=== PATIENT | male | born 1940 | race Caucasian/White ===

== ENCOUNTER 2019-12-29 16:01 | Inpatient (IN) ==
[2019-12-29] MEDS ORDERED: Ipratropium/Albuterol Neb 3 ML IH ONE (16:26)
[2019-12-29 16:45] LABS: Basophils % 0.5 %; Eosinophils # 0.1 K/mcL (0.0-0.6); Eosinophils % 2.2 %; Hematocrit 26.3 % (37.5-50.1); Hemoglobin 6.8 g/dL (12.9-16.9); Immature Granulocytes % 1.1 % (0-4); Lymphocytes # 0.8 K/mcL (0.6-4.6); Lymphocytes % 14.7 %; Mean Corpuscular HGB Conc 25.9 g/dL (31.6-35.5); Mean Corpuscular Hemoglobin 20.6 pg (28.0-33.3); Mean Corpuscular Volume 79.7 fL (83.0-100.0); Mean Platelet Volume 9.7 fL (9.4-12.4); Monocytes # 0.4 K/mcL (0.0-1.3); Monocytes % 7.6 %; Neutrophils # 4.1 K/mcL (1.6-8.9); Nucleated Red Blood Cells 0.4 /100 WBC (0); Platelet Count 205 K/mcL (140-400); Red Cell Distribution Width 17.4 % (11.5-14.5); Segmented Neutrophils % 73.9 %; White Blood Count 5.5 K/mcL (4.3-11.1)
[2019-12-29 17:06] LABS: Hypochromasia Present (Not Present); Platelet Estimate Normal (Normal)
[2019-12-29 17:14] LABS: Alanine Aminotransferase 19 Units/L (7-52); Albumin 4.4 g/dL (3.5-5.7); Albumin/Globulin Ratio 1.3 (1.1-2.2); Alkaline Phosphatase 129 Units/L (34-104); Aspartate Amino Transferase 19 Units/L (13-39); Bilirubin,Direct 0.2 mg/dL (0.0-0.2); Bilirubin,Indirect 0.4 mg/dL (0.0-1.0); Bilirubin,Total 0.6 mg/dL (0.3-1.0); Globulin 3.3 g/dL (2.4-3.5); Lipase 4 Units/L (11-82); Magnesium 2.3 mg/dL (1.6-2.6); Total Protein 7.7 g/dL (6.4-8.9); Troponin I < 0.03 ng/mL (< 0.04)
[2019-12-29] MEDS ORDERED: 0.9 % Sodium Chloride 250 ML ONE ×2 (17:15→22:20)
[2019-12-29] MEDS ORDERED: Pantoprazole 40 MG VIAL IVP ONE (17:47)
[2019-12-29] MEDS ORDERED: Piperacillin/Tazobactam 3.375 GM in Water for inj. (sterile) 20 ML IVP ONE (17:49)
[2019-12-29] MEDS ORDERED: Naloxone 0.4 MG/ML INJ IVP PRN (19:03)
[2019-12-29] MEDS ORDERED: Ondansetron 4 MG/2 ML VIAL IVP PRN (19:03)
[2019-12-29] MEDS ORDERED: *HR* Dextrose 50 % in Water (Syg) 50 ML SYRINGE IVP PRN (19:07)
[2019-12-29] MEDS ORDERED: Dextrose Gel 15 GM/37.5 ML TUBE PO PRN ×2 (19:07)
[2019-12-29] MEDS ORDERED: D5% in Water 1,000 ML IVC PRN (19:07)
[2019-12-29 19:42] LABS: Immature Reticulocyte % 37.8 % (11.0-38.0); Retculocyte # 0.11 M/mcL (0.05-0.10); Reticulocyte % 3.3 % (1.6-2.8)
[2019-12-29 19:48] LABS: Iron 20 mcg/dL (65-175)
[2019-12-29 19:56] LABS: Ferritin 8 ng/mL (20-250)
[2019-12-29 20:08] LABS: Folate 20.6 ng/mL (3.0-16.0)
[2019-12-29 20:16] LABS: Estimated Average Glucose 154 mg/dl
[2019-12-29] MEDS: Budesonide/Formoterol 160/4.5 1 PUFF INH IH SCH (20:29)
[2019-12-29] MEDS: Ipratropium/Albuterol Neb 3 ML IH SCH ×2 (20:29→23:05)
[2019-12-29 20:33] LABS: Transferrin 411 mg/dL (203-362)
[2019-12-29] MEDS: predniSONE 20 MG TABLET PO SCH (21:12)
[2019-12-30] MEDS: Insulin LISPRO 300 UNITS/3 ML VIAL SQ SCH ×5 (02:16→23:56)
[2019-12-30 03:06] LABS: Mean Platelet Volume 10.4 fL (9.4-12.4)
[2019-12-30 03:07] LABS: Basophils % 0.5 %; Eosinophils # 0.1 K/mcL (0.0-0.6); Eosinophils % 0.8 %; Hematocrit 29.1 % (37.5-50.1); Immature Granulocytes % 1.8 % (0-4); Lymphocytes # 0.4 K/mcL (0.6-4.6); Lymphocytes % 5.6 %; Mean Corpuscular HGB Conc 27.5 g/dL (31.6-35.5); Mean Corpuscular Hemoglobin 22.9 pg (28.0-33.3); Mean Corpuscular Volume 83.4 fL (83.0-100.0); Monocytes # 0.2 K/mcL (0.0-1.3); Monocytes % 2.9 %; Neutrophils # 6.5 K/mcL (1.6-8.9); Nucleated Red Blood Cells 0.5 /100 WBC (0); Platelet Count 169 K/mcL (140-400); Red Blood Count 3.49 M/mcL (4.19-5.50); Red Cell Distribution Width 17.1 % (11.5-14.5); Segmented Neutrophils % 88.4 %; White Blood Count 7.3 K/mcL (4.3-11.1)
[2019-12-30 03:24] LABS: BUN/Creatinine Ratio 14 (6-26); Blood Urea Nitrogen 13 mg/dL (8-23); Calcium 8.4 mg/dL (8.6-10.3); Carbon Dioxide 24 mEq/L (23-29); Chloride 108 mEq/L (98-107); Glucose 153 mg/dL (70-105); Magnesium 2.2 mg/dL (1.6-2.6); Osmolality,Calculated 289 (280-300); Phosphorous 3.9 mg/dL (2.7-4.5); Potassium 4.4 mEq/L (3.5-5.1); Sodium 138 mEq/L (136-145); eGFR For African Americans > 60 (> 60); eGFR For Non-African Americans > 60 (> 60)
[2019-12-30] MEDS: Ipratropium/Albuterol Neb 3 ML IH SCH ×6 (03:48→23:48)
[2019-12-30 03:59] LABS: Hypochromasia Present (Not Present); Platelet Estimate Normal (Normal); Polychromasia 1+ (Not Present)
[2019-12-30] MEDS: Pantoprazole 40 MG VIAL IVP SCH ×2 (06:26→17:11)
[2019-12-30] MEDS: Budesonide/Formoterol 160/4.5 1 PUFF INH IH SCH ×2 (07:24→19:35)
[2019-12-30 07:55] LABS: Hemoglobin 8.1 g/dL (12.9-16.9); Nucleated Red Blood Cells 0.3 /100 WBC (0); Red Cell Distribution Width 17.1 % (11.5-14.5)
[2019-12-30 07:57] LABS: Basophils % 0.3 %; Eosinophils % 0.1 %; Hematocrit 29.2 % (37.5-50.1); Immature Granulocytes % 1.3 % (0-4); Lymphocytes # 0.6 K/mcL (0.6-4.6); Lymphocytes % 8.7 %; Mean Corpuscular HGB Conc 27.7 g/dL (31.6-35.5); Mean Platelet Volume 9.6 fL (9.4-12.4); Monocytes # 0.2 K/mcL (0.0-1.3); Monocytes % 2.8 %; Platelet Count 165 K/mcL (140-400); Red Blood Count 3.52 M/mcL (4.19-5.50); Segmented Neutrophils % 86.8 %; White Blood Count 6.9 K/mcL (4.3-11.1)
[2019-12-30 08:29] LABS: Basophilic Stippling 1+ (Not Present); Platelet Estimate Normal (Normal)
[2019-12-30 08:30] LABS: Polychromasia 1+ (Not Present)
[2019-12-30 08:31] LABS: Anisocytosis 1+ (Not Present); Hypochromasia Present (Not Present); Ovalocytes 1+ (Not Present)
[2019-12-30] MEDS: Iron Sucrose Complex 200 MG in 0.9 % Sodium Chloride 100 ML IVPB SCH (10:32)
[2019-12-30] MEDS: predniSONE 20 MG TABLET PO SCH (10:32)
[2019-12-30 15:00] LABS: INR 1.3; Prothrombin Time 15.2 Seconds (9.4-12.1)
[2019-12-30] MEDS ORDERED: SODIUM CHLORIDE/NAHCO3/KCL/PEG 4,000 ML SOLN.RECON PO ONE (17:00)
[2019-12-31 01:02] LABS: Hemoglobin 7.9 g/dL (12.9-16.9)
[2019-12-31 01:03] LABS: Hematocrit 29.4 % (37.5-50.1); Mean Corpuscular HGB Conc 26.9 g/dL (31.6-35.5); Mean Corpuscular Volume 81.9 fL (83.0-100.0); Platelet Count 178 K/mcL (140-400); Red Blood Count 3.59 M/mcL (4.19-5.50); Red Cell Distribution Width 17.3 % (11.5-14.5); White Blood Count 5.5 K/mcL (4.3-11.1)
[2019-12-31 01:09] LABS: BUN/Creatinine Ratio 15 (6-26); Blood Urea Nitrogen 13 mg/dL (8-23); Calcium 8.4 mg/dL (8.6-10.3); Carbon Dioxide 26 mEq/L (23-29); Chloride 104 mEq/L (98-107); Glucose 108 mg/dL (70-105); Osmolality,Calculated 285 (280-300); Potassium 3.8 mEq/L (3.5-5.1); Sodium 137 mEq/L (136-145); eGFR For African Americans > 60 (> 60); eGFR For Non-African Americans > 60 (> 60)
[2019-12-31] MEDS: Ipratropium/Albuterol Neb 3 ML IH SCH ×8 (03:43→23:05)
[2019-12-31] MEDS: Insulin LISPRO 300 UNITS/3 ML VIAL SQ SCH ×4 (05:49→22:38)
[2019-12-31] MEDS: Pantoprazole 40 MG VIAL IVP SCH ×2 (06:08→17:05)
[2019-12-31] MEDS ORDERED: *HR* FentaNYL (PF) 100 MCG/2 ML VIAL ONE (06:19)
[2019-12-31] MEDS ORDERED: Lidocaine -MPF 2% 2 ML VIAL ONE (06:23)
[2019-12-31] MEDS ORDERED: Ondansetron 4 MG/2 ML VIAL ONE (06:23)
[2019-12-31] MEDS ORDERED: *HR* Rocuronium Bromide 50 MG/5 ML VIAL ONE (06:23)
[2019-12-31] MEDS ORDERED: *HR* Succinylcholine 200 MG/10 ML VIAL IVP ONE (06:23)
[2019-12-31] MEDS ORDERED: Morphine Sulfate 2 MG/ML SYRINGE IVP PRN (08:08)
[2019-12-31] MEDS ORDERED: Albuterol 2.5 MG/3 ML NEBULIZER IH PRN (09:10)
[2019-12-31] MEDS: amLODIPine 5 MG TABLET PO SCH (10:05)
[2019-12-31] MEDS: predniSONE 20 MG TABLET PO SCH (10:19)
[2019-12-31] MEDS: Iron Sucrose Complex 200 MG in 0.9 % Sodium Chloride 100 ML IVPB SCH (10:19)
[2019-12-31] MEDS: Budesonide/Formoterol 160/4.5 1 PUFF INH IH SCH ×2 (11:15→20:08)
[2020-01-01 03:13] LABS: Mean Platelet Volume 9.8 fL (9.4-12.4)
[2020-01-01 03:14] LABS: Hematocrit 30.9 % (37.5-50.1); Hemoglobin 8.1 g/dL (12.9-16.9); Mean Corpuscular HGB Conc 26.2 g/dL (31.6-35.5); Mean Corpuscular Hemoglobin 21.8 pg (28.0-33.3); Mean Corpuscular Volume 83.3 fL (83.0-100.0); Platelet Count 183 K/mcL (140-400); Red Blood Count 3.71 M/mcL (4.19-5.50); White Blood Count 6.6 K/mcL (4.3-11.1)
[2020-01-01 03:29] LABS: BUN/Creatinine Ratio 15 (6-26); Blood Urea Nitrogen 14 mg/dL (8-23); Calcium 8.8 mg/dL (8.6-10.3); Carbon Dioxide 28 mEq/L (23-29); Chloride 103 mEq/L (98-107); Glucose 106 mg/dL (70-105); Osmolality,Calculated 285 (280-300); Potassium 3.7 mEq/L (3.5-5.1); Sodium 137 mEq/L (136-145); eGFR For African Americans > 60 (> 60); eGFR For Non-African Americans > 60 (> 60)
[2020-01-01] MEDS: Ipratropium/Albuterol Neb 3 ML IH SCH ×5 (03:56→20:30)
[2020-01-01] MEDS: Pantoprazole 40 MG VIAL IVP SCH ×2 (05:37→17:20)
[2020-01-01] MEDS: Budesonide/Formoterol 160/4.5 1 PUFF INH IH SCH ×2 (07:29→20:30)
[2020-01-01] MEDS: Insulin LISPRO 300 UNITS/3 ML VIAL SQ SCH ×4 (08:14→21:17)
[2020-01-01] MEDS: predniSONE 20 MG TABLET PO SCH (08:17)
[2020-01-01] MEDS: amLODIPine 5 MG TABLET PO SCH (08:17)
[2020-01-01] MEDS: Iron Sucrose Complex 200 MG in 0.9 % Sodium Chloride 100 ML IVPB SCH (08:24)
[2020-01-01] MEDS: Furosemide 40 MG/4 ML VIAL IVP SCH (15:20)
[2020-01-01] MEDS: Fluticasone Propionate Nasal 50 MCG/SPRAY BOTTLE NS SCH (15:21)
[2020-01-02] MEDS: Ipratropium/Albuterol Neb 3 ML IH SCH ×7 (00:23→23:55)
[2020-01-02 04:10] LABS: Hemoglobin 7.9 g/dL (12.9-16.9); Red Cell Distribution Width 18.4 % (11.5-14.5)
[2020-01-02 04:11] LABS: Hematocrit 28.7 % (37.5-50.1); Mean Corpuscular HGB Conc 27.5 g/dL (31.6-35.5); Mean Corpuscular Hemoglobin 23.4 pg (28.0-33.3); Mean Corpuscular Volume 84.9 fL (83.0-100.0); Platelet Count 147 K/mcL (140-400); Red Blood Count 3.38 M/mcL (4.19-5.50); White Blood Count 6.1 K/mcL (4.3-11.1)
[2020-01-02 04:28] LABS: BUN/Creatinine Ratio 20 (6-26); Blood Urea Nitrogen 21 mg/dL (8-23); Calcium 8.8 mg/dL (8.6-10.3); Carbon Dioxide 27 mEq/L (23-29); Chloride 104 mEq/L (98-107); Glucose 133 mg/dL (70-105); Osmolality,Calculated 293 (280-300); Potassium 3.6 mEq/L (3.5-5.1); Sodium 139 mEq/L (136-145); eGFR For African Americans > 60 (> 60); eGFR For Non-African Americans > 60 (> 60)
[2020-01-02] MEDS: Pantoprazole 40 MG VIAL IVP SCH (05:44)
[2020-01-02] MEDS: Budesonide/Formoterol 160/4.5 1 PUFF INH IH SCH ×2 (07:31→19:43)
[2020-01-02] MEDS: amLODIPine 5 MG TABLET PO SCH (08:33)
[2020-01-02] MEDS: Insulin LISPRO 300 UNITS/3 ML VIAL SQ SCH ×4 (08:38→20:59)
[2020-01-02] MEDS: Furosemide 40 MG/4 ML VIAL IVP SCH (08:40)
[2020-01-02] MEDS: predniSONE 20 MG TABLET PO SCH (08:40)
[2020-01-02] MEDS: Fluticasone Propionate Nasal 50 MCG/SPRAY BOTTLE NS SCH (08:41)
[2020-01-03] MEDS: Ipratropium/Albuterol Neb 3 ML IH SCH ×6 (03:48→23:45)
[2020-01-03 04:01] LABS: Hematocrit 32.3 % (37.5-50.1); Hemoglobin 8.9 g/dL (12.9-16.9); Mean Corpuscular HGB Conc 27.6 g/dL (31.6-35.5); Mean Corpuscular Hemoglobin 23.6 pg (28.0-33.3); Mean Corpuscular Volume 85.7 fL (83.0-100.0); Mean Platelet Volume 10.6 fL (9.4-12.4); Platelet Count 190 K/mcL (140-400); Red Blood Count 3.77 M/mcL (4.19-5.50); Red Cell Distribution Width 20.1 % (11.5-14.5); White Blood Count 7.2 K/mcL (4.3-11.1)
[2020-01-03 04:23] LABS: BUN/Creatinine Ratio 24 (6-26); Blood Urea Nitrogen 20 mg/dL (8-23); Calcium 8.7 mg/dL (8.6-10.3); Carbon Dioxide 30 mEq/L (23-29); Chloride 101 mEq/L (98-107); Glucose 165 mg/dL (70-105); Osmolality,Calculated 296 (280-300); Potassium 3.8 mEq/L (3.5-5.1); Sodium 140 mEq/L (136-145); eGFR For African Americans > 60 (> 60); eGFR For Non-African Americans > 60 (> 60)
[2020-01-03] MEDS: Budesonide/Formoterol 160/4.5 1 PUFF INH IH SCH ×2 (07:44→19:39)
[2020-01-03] MEDS: Insulin LISPRO 300 UNITS/3 ML VIAL SQ SCH ×4 (08:08→23:01)
[2020-01-03] MEDS: amLODIPine 5 MG TABLET PO SCH (08:09)
[2020-01-03] MEDS: Furosemide 40 MG/4 ML VIAL IVP SCH (08:09)
[2020-01-03] MEDS: Fluticasone Propionate Nasal 50 MCG/SPRAY BOTTLE NS SCH (08:09)
[2020-01-04 01:22] LABS: Hemoglobin 8.7 g/dL (12.9-16.9); Red Cell Distribution Width 21.1 % (11.5-14.5)
[2020-01-04 01:23] LABS: Hematocrit 31.8 % (37.5-50.1); Mean Corpuscular HGB Conc 27.4 g/dL (31.6-35.5); Mean Corpuscular Hemoglobin 23.3 pg (28.0-33.3); Mean Platelet Volume 9.6 fL (9.4-12.4); Platelet Count 169 K/mcL (140-400); Red Blood Count 3.74 M/mcL (4.19-5.50); White Blood Count 5.7 K/mcL (4.3-11.1)
[2020-01-04 01:42] LABS: BUN/Creatinine Ratio 23 (6-26); Blood Urea Nitrogen 20 mg/dL (8-23); Calcium 8.6 mg/dL (8.6-10.3); Carbon Dioxide 32 mEq/L (23-29); Chloride 100 mEq/L (98-107); Glucose 130 mg/dL (70-105); Osmolality,Calculated 292 (280-300); Potassium 3.6 mEq/L (3.5-5.1); Sodium 139 mEq/L (136-145); eGFR For African Americans > 60 (> 60); eGFR For Non-African Americans > 60 (> 60)
[2020-01-04] MEDS: Ipratropium/Albuterol Neb 3 ML IH SCH ×6 (03:22→23:03)
[2020-01-04] MEDS: Budesonide/Formoterol 160/4.5 1 PUFF INH IH SCH ×2 (07:38→19:41)
[2020-01-04] MEDS: Insulin LISPRO 300 UNITS/3 ML VIAL SQ SCH ×4 (07:39→21:14)
[2020-01-04] MEDS: amLODIPine 5 MG TABLET PO SCH (08:02)
[2020-01-04] MEDS: Fluticasone Propionate Nasal 50 MCG/SPRAY BOTTLE NS SCH (08:03)
[2020-01-04] MEDS: Furosemide 40 MG TABLET PO SCH (08:03)
[2020-01-04] MEDS ORDERED: Furosemide 40 MG TABLET PO SCH (09:00)
[2020-01-04] MEDS ORDERED: *HR* Succinylcholine 200 MG/10 ML VIAL IVP ONE (15:46)
[2020-01-04] MEDS ORDERED: *HR* FentaNYL (PF) 100 MCG/2 ML VIAL ONE (15:46)
[2020-01-04] MEDS ORDERED: Dexamethasone 4 MG/ML VIAL ONE (15:46)
[2020-01-04] MEDS ORDERED: *HR* PHENYLEPHRINE 1,000 MCG/10 ML SYRINGE IVP ONE (15:46)
[2020-01-04] MEDS ORDERED: *HR* Propofol 200 MG/20 ML VIAL IVP ONE (15:46)
[2020-01-04] MEDS ORDERED: Lidocaine -MPF 2% 2 ML VIAL ONE (15:46)
[2020-01-04] MEDS ORDERED: Ondansetron 4 MG/2 ML VIAL ONE (15:46)
[2020-01-04 21:21] LABS: Appearance of Body Fluid Hazy (Clear); Volume of Body Fluid 20 mL
[2020-01-05 03:37] LABS: Hematocrit 34.2 % (37.5-50.1); Hemoglobin 9.7 g/dL (12.9-16.9); Mean Corpuscular HGB Conc 28.4 g/dL (31.6-35.5); Mean Corpuscular Volume 84.4 fL (83.0-100.0); Mean Platelet Volume 9.4 fL (9.4-12.4); Platelet Count 158 K/mcL (140-400); Red Blood Count 4.05 M/mcL (4.19-5.50); Red Cell Distribution Width 21.2 % (11.5-14.5); White Blood Count 6.2 K/mcL (4.3-11.1)
[2020-01-05] MEDS: Ipratropium/Albuterol Neb 3 ML IH SCH ×4 (03:48→16:02)
[2020-01-05 04:28] LABS: BUN/Creatinine Ratio 21 (6-26); Blood Urea Nitrogen 18 mg/dL (8-23); Carbon Dioxide 31 mEq/L (23-29); Chloride 98 mEq/L (98-107); Glucose 232 mg/dL (70-105); Osmolality,Calculated 289 (280-300); Potassium 4.5 mEq/L (3.5-5.1); Sodium 135 mEq/L (136-145); eGFR For African Americans > 60 (> 60); eGFR For Non-African Americans > 60 (> 60)
[2020-01-05] MEDS: amLODIPine 5 MG TABLET PO SCH (07:38)
[2020-01-05] MEDS: Furosemide 40 MG TABLET PO SCH (07:38)
[2020-01-05] MEDS: Fluticasone Propionate Nasal 50 MCG/SPRAY BOTTLE NS SCH (07:39)
[2020-01-05] MEDS: Insulin LISPRO 300 UNITS/3 ML VIAL SQ SCH ×3 (07:39→17:19)
[2020-01-05] MEDS: Budesonide/Formoterol 160/4.5 1 PUFF INH IH SCH (07:52)
[2020-01-05 10:17] VITALS: BP 110/58
== END 2020-01-05 18:56 | disposition home or self-care (01) | DRG 377 ==
LOC: 2ANU 16:01 → EMEROOARM 16:01 → SUATTDRO 19:14 → 3ANU 19:27
PROVIDERS: ADMIT Student in an Organized Health Care Education/Training Program; ATTEND Family Medicine